=== PATIENT | female | born 1950 | race Caucasian/White ===

== ENCOUNTER 2016-10-27 14:22 | Emergency (ER) | payer BC, OTHER ==
[2016-10-27] MEDS ORDERED: KETOROLAC TROMETHAMINE INJ 30 MG/ML VIAL IM ONE (14:38)
[2016-10-27] MEDS ORDERED: CYCLOBENZAPRINE HCL 5 MG TAB PO ONE (14:38)
--- NOTE | 2016-10-27 14:41 | ED.PDOC ---
History of Present Illness - General Chief Complaint: Trauma Stated Complaint: fall Time Seen by Provider: 10/27/16 14:37 Source: patient, RN notes reviewed, Vital Signs reviewed Exam Limitations: no limitations - History of Present Illness Initial Comments: Patient was walking around a corner at work and slipped on a wet floor and fell. She twisted her right ankle. Does not think she hit her head and when the principal reviewed the video it did not appear that she hit her head. No LOC. + neck pain and headache. Mild L elbow pain, Low back pain and R posterior pelvis pain. Occurred: this afternoon Severity: moderate Pain Location: head, neck, pelvis, other - Right ankle Method of Injury: fall Improving Factors: immobilization Worsening Factors: movement Loss of Consciousness: no loss of consciousness Associated Symptoms (Fall): headache, neck pain Allergies/Adverse Reactions: Allergies Penicillins Allergy (Verified 10/27/16 14:35) Hydrocodone Adverse Reaction (Verified 10/27/16 14:35) Home Medications: Ambulatory Orders Cyclobenzaprine HCl 5 mg PO Q8HRS PRN #15 tab 10/27/16 Review of Systems - Review of Systems Constitutional: States: no symptoms reported EENTM: States: no symptoms reported Respiratory: States: no symptoms reported Cardiology: States: no symptoms reported Gastrointestinal/Abdominal: States: no symptoms reported Musculoskeletal: States: see HPI, back pain, joint pain, joint swelling, muscle pain, neck pain Skin: States: no symptoms reported Neurological: States: headache. Denies: numbness, paresthesia, pre-existing deficit, seizure, tingling, tremors, weakness Endocrine: States: no symptoms reported Hematologic/Lymphatic: States: no symptoms reported Past Medical History (General) - Patient Medical History Surgical History: appendectomy - Vaccination History Hx Influenza Vaccination: No - Social History Hx Tobacco Use: No Family Medical History - Family History Mother Family History: Unknown Living Status: Unknown Physical Exam - Physical Exam General Appearance: Alert, Obvious distress - due to pain, Well Developed, Well Groomed, Well Hydrated, Well Nourished Head Injury: no evidence of injury Eye Exam: bilateral normal ENT Exam: hearing grossly normal, no evidence of ENT injury, no dental injury Neck Exam: normal alignment, limited range of motion, muscle spasm, paraspinous muscle tender, spinous processes tender, tenderness, tender lateral, tender midline Cardiovascular/Respiratory: regular rate, rhythm, no M/R/G, normal peripheral pulses, no JVD, normal breath sounds, no respiratory distress Gastrointestinal/Abdominal: normal bowel sounds, non tender, soft, no organomegaly, no pulsatile mass Back Exam: no vertebral tenderness, muscle spasm - R lumbar Extremity Exam: pelvis stable, bony-point tenderness - R ankle, pain with movement - R ankle, tenderness 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 Will d/c home and have her stay off work for a couple days. - EKG/XRAY/CT XRAY: C-spine, L-spine, pelvis and ankle Xray Comments: No fractures or acute changes Departure - Departure Clinical Impression: Strain of ankle and foot, Strain of neck muscle, Contusion of hip, right Time of Disposition: 15:58 Disposition: Discharge to Home or Self Care Condition: Good Departure Forms: ED Discharge - Pt. Copy, Patient Portal Self Enrollment, Work Release Form Instructions: Neck Sprain, Ankle Sprain, Contusion Diet: resume usual diet Activity: walking as tolerated Prescriptions: Cyclobenzaprine HCl 5 mg PO Q8HRS PRN #15 tab PRN Reason: Muscle Spasms Home Medications: Ambulatory Orders Cyclobenzaprine HCl 5 mg PO Q8HRS PRN #15 tab 10/27/16
[2016-10-27] MEDS ORDERED: CYCLOBENZAPRINE HCL 10 MG TAB ONE (14:42)
[2016-10-27 14:45] VITALS: BP 156/79; TEMP 97.2; O2SAT 97
--- NOTE | 2016-10-27 15:31 | RAD ---
EXAM DESCRIPTION: XR CERVICAL SPINE 2 - 3 VIEWS CLINICAL HISTORY: pain s/p fall COMPARISON: None Available. TECHNIQUE: AP/lateral/ open-mouth odontoid FINDINGS: Minimal anterior subluxation of C3 on C4 is observed. The disc spaces are relatively well maintained. There is mild loss of disc height at the C5-6 level. No soft tissue swelling is seen. No malrotation is detected. The atlantoaxial junction and dens are normal. IMPRESSION: Mild degenerative changes are observed. No fracturing is detected. Electronically signed by: Rik Keller MD 10/27/2016 15:30
--- NOTE | 2016-10-27 15:31 | RAD ---
EXAM DESCRIPTION: XR ANKLE 3 OR MORE VIEWS CLINICAL HISTORY: pain s/p fall COMPARISON: None. TECHNIQUE: Three views. FINDINGS: Mild soft tissue swelling is observed. The ankle mortise is intact. No fracturing is detected. A small Achilles enthesophyte is observed. IMPRESSION: No fracturing is detected. Electronically signed by: Rik Keller MD 10/27/2016 15:28
--- NOTE | 2016-10-27 15:32 | RAD ---
EXAM DESCRIPTION: XR LUMBAR SPINE 2-3 VIEWS CLINICAL HISTORY: pain s/p fall COMPARISON: None Available. TECHNIQUE: AP/lateral/coned-down lateral FINDINGS: Loss of disc height and vacuum disc phenomena is observed at the L2-3 level. Anterior osteophyte formation is observed at this level. I see no evidence of spondylolysis or spondylolisthesis. IMPRESSION: Degenerative changes are observed most pronounced at the L2-3 level. No fracturing is detected. Electronically signed by: Rik Keller MD 10/27/2016 15:31
--- NOTE | 2016-10-27 15:34 | RAD ---
EXAM DESCRIPTION: XR PELVIS 1-2 VIEWS CLINICAL HISTORY: pain s/p fall COMPARISON: None Available. TECHNIQUE: AP pelvis FINDINGS: Phleboliths are observed in the pelvis. No fracturing is detected. No bone abnormality of significance is detected. No soft tissue abnormality is seen. IMPRESSION: No fracturing is detected. Electronically signed by: Rik Keller MD 10/27/2016 15:32
== END 2016-10-27 16:10 | disposition home or self-care (01) ==
LOC: ER 14:22
DX: S93.409A Sprain of unspecified ligament of unspecified ankle, initial encounter (principal); S16.1XXA Strain of muscle, fascia and tendon at neck level, initial encounter; S70.01XA Contusion of right hip, initial encounter; W01.0XXA Fall on same level from slipping, tripping and stumbling without subsequent striking against object, initial encounter; Y99.0 Civilian activity done for income or pay
CPT/HCPCS: 72040; 72100; 72170; 73610; J1885

== ENCOUNTER → 2017-01-12 | Outpatient (CLI) | payer MEDICARE, OTHER ==
--- NOTE | 2017-01-13 10:30 | RAD ---
EXAM DESCRIPTION: Ankle,Right 3 Views CLINICAL HISTORY: 66 years,Female,ANKLE PAIN COMPARISON: October 27, 2016 FINDINGS: The right ankle demonstrates no fracture, dislocation, or other acute bony abnormalities. Ankle mortise and talar dome unremarkable. Soft tissues are unremarkable. There is however a small region of sclerosis which was not seen in the prior study at the posterior superior aspect of the calcaneus IMPRESSION: Small mild area of new sclerosis seen in the posterior superior aspect of the calcaneus. This could be due to a stress fracture although this is an unusual location. And can be confirmed with bone scan or MRI if needed. [] Electronically signed by: Rik Taylor MD 01/13/2017 10:29 AM CDT
== END ==
LOC: RAD 16:42
PROVIDERS: ATTEND Nurse Practitioner Family
DX: M25.571 Pain in right ankle and joints of right foot (principal)

== ENCOUNTER → 2017-01-18 | Outpatient (CLI) | payer OTHER, MEDICARE ==
--- NOTE | 2017-01-18 11:39 | MRI ---
EXAM DESCRIPTION: MRI right ankle CLINICAL HISTORY: Ankle pain. Fracture of the calcaneus COMPARISON: None. TECHNIQUE: Multiplanar, multisequence MR images of the right ankle FINDINGS: Marked thickening of the middle bundle plantar fascia. Mild perifacial edema and minimal edema in a small well-corticated plantar calcaneal spur. No plantar fascial tear Normal Achilles tendon. No marrow abnormality of the calcaneus. No osteochondral lesion subtalar or calcaneocuboid Tibiofibular syndesmosis and ligaments are intact. Thickened anterior talofibular ligament with intraligamentous signal consistent with sprain/partial interstitial tear. No ligament laxity. Calcaneofibular and posterior talofibular ligaments are normal. Normal deltoid ligament. A marker placed anterior medial. No diagnostic acute abnormality of the deltoid ligament. Mild posterior tibial tenosynovitis with small tendon sheath effusion and mild insertional tendinosis. Calcaneonavicular ligament intact. Flexor digitorum and flexor hallux tendons are normal Flattened peroneus brevis retromalleolar with short segment interstitial partial tear. Peroneus longus tendon is normal. Normal dorsiflexion tendons No osteochondral lesion of the ankle or hindfoot Midfoot interosseous ligaments are intact IMPRESSION: Acute on chronic middle bundle plantar fascial fasciitis with minimal edema in the small calcaneal spur Posterior tibial tenosynovitis Short segment peroneus brevis split tear Electronically signed by: Matty Gomez MD 01/18/2017 11:38 AM CDT
== END | disposition home or self-care (01) ==
LOC: MRI 07:14
PROVIDERS: ATTEND Nurse Practitioner Family
DX: S92.001A Unspecified fracture of right calcaneus, initial encounter for closed fracture (principal)

== ENCOUNTER → 2017-03-24 | Outpatient (CLI) | payer MEDICARE, OTHER ==
--- NOTE | 2017-03-24 14:20 | MAM ---
History: Well woman exam. Date of exam: 03/24/2017 Services provided: Bilateral full field digital screening mammography. CAD, the images were reviewed with R2 computer aided detection. FINDINGS: Glandular tissue is scattered glandular contour. No prior study for comparison. 7 mm nodule right breast 11-12 o'clock does not have associated calcification or architectural distortion. No mammographic abnormality is noted on the left. IMPRESSION: Incomplete exam Recommendation: Directed right breast sonography, 7 mm nodule approximately 2 to 3 cm from the nipple 11-12 o'clock right breast. BIRAD CATEGORY: 0 INCOMPLETE Electronically signed by: Kya Martinez MD 03/24/2017 2:20 PM CDT Workstation: [id number]
== END | disposition home or self-care (01) ==
LOC: MAMMO 09:36
PROVIDERS: ATTEND Nurse Practitioner Family
DX: Z12.31 Encounter for screening mammogram for malignant neoplasm of breast (principal)

== ENCOUNTER → 2017-04-23 | Outpatient (CLI) | payer MEDICARE, OTHER | LOC: LAB 06:59 | PROVIDERS: ATTEND Nurse Practitioner Family | DX: E11.9 Type 2 diabetes mellitus without complications (principal); R21 Rash and other nonspecific skin eruption ==

== ENCOUNTER → 2017-05-04 | Outpatient (CLI) | payer MEDICARE, OTHER ==
--- NOTE | 2017-05-04 16:51 | US ---
EXAM DESCRIPTION: Breast,Right CLINICAL HISTORY: 66 years Female, March 24 screening mammogram showed possible abnormality central retroareolar portion right breast COMPARISON: March 24, 2017 FINDINGS: Directed ultrasound right breast in the area of mammographic concern shows a benign lymph node with fatty hilum measuring 7.2 x 4.2 mm in size. There is no worrisome finding observed. IMPRESSION: BIRAD CATEGORY: 2 BENIGN Electronically signed by: Lucius Dior MD 05/04/2017 4:49 PM CDT Workstation: [id number]
== END ==
LOC: MAMMO 16:30
PROVIDERS: ATTEND Nurse Practitioner Family
DX: N63 Unspecified lump in breast (principal)

== ENCOUNTER → 2018-05-09 | Outpatient (CLI) | payer MEDICARE, OTHER ==
--- NOTE | 2018-05-10 08:45 | MAM ---
EXAM DESCRIPTION: 3D Screening BILATERAL : Digital Mammography. CLINICAL HISTORY: 67 years Female SCREENING . No complaints. No family history breast cancer. Childbirth. Additional history unknown. COMPARISON: Digital screening bilateral study 03/24/2017. Right breast diagnostic ultrasound 05/04/2017. Reports from prior examinations also reviewed. TECHNIQUE: Bilateral CC and MLO projection full-field images, 3-D tomosynthesis digital mammographic technique. CAD not utilized. FINDINGS: The breast parenchymal density pattern is: Scattered areas of fibroglandular density. No skin thickening or nipple retraction. Bilateral axillary lymph nodes. Large coarse calcification in the anterior right breast. Bilateral smaller solitary microcalcifications. Stable intramammary lymph node anterior right breast. No new focal, stellate mass or density, focal asymmetry , and no suspicious microcalcifications bilaterally. Stable mammograms compared to prior study, taking into account differences in mammographic technique. IMPRESSION: BI-RADS CATEGORY: 2 - BENIGN FINDINGS. FOLLOW UP: Routine digital bilateral screening, one year interval from April 2018. Written communication explaining the IMPRESSION and follow-up, will be mailed to the patient and referring health care provider. According to the [employer], yearly mammograms are recommended starting at age 40 and continuing as long as a woman is in good health. Any breast change noted on a breast self-exam should be reported promptly to the patient's healthcare provider. Breast MRI is recommended for women with an approximately 20-25% or greater lifetime risk of breast cancer, including women with a strong family history of breast or ovarian cancer and women who have been treated for Hodgkin's disease. A negative mammographic report should not delay tissue diagnosis in patients with significant clinical history or physical findings. Extremely dense breast tissue limits the sensitivity of digital mammography. Electronically signed by: Kurtis Sevilla MD 05/10/2018 8:43 AM CDT
== END ==
LOC: MAMMO 08:30
PROVIDERS: ATTEND Nurse Practitioner Family
DX: Z12.31 Encounter for screening mammogram for malignant neoplasm of breast (principal)

== ENCOUNTER → 2018-05-17 | Outpatient (CLI) | payer MEDICARE, OTHER | LOC: GMAJS 11:50 | PROVIDERS: ATTEND Physician Assistant | DX: M79.609 Pain in unspecified limb (principal) ==

== ENCOUNTER → 2018-09-19 | Outpatient (CLI) | payer MEDICARE, OTHER ==
--- NOTE | 2018-09-19 09:04 | MRI ---
EXAM DESCRIPTION: MRI right wrist CLINICAL HISTORY: M25.331. Anterior wrist pain COMPARISON: None. TECHNIQUE: Multiplanar, multisequence MR images of the right wrist FINDINGS: Small extensor carpi ulnaris talus tendon sheath effusion without intrinsic signal abnormality. The other extensor tendons of the wrist are normal. Normal flexor tendons. Carpal tunnel and Guyon's canal are normal Intact triangular fibrocartilage complex. Grade 4 chondrosis along the ulnar side of the lunate over about 6 mm with subchondral cystic change and minimal edema. Grade 4 chondrosis over the distal radial aspect of the lunate articular surface with small focus of subchondral edema over about 4 mm. No other full-thickness chondrosis or chronic osteochondral lesion. Marrow signal otherwise normal Intrinsic ligaments of the wrist are intact IMPRESSION: Small extensor carpi radialis brevis tendon sheath effusion Regions of grade 4 chondrosis proximal ulnar side of the lunate and distal radial side of the lunate Electronically signed by: Matty Gomez MD 09/19/2018 9:03 AM [facility]
== END ==
LOC: MRI 07:00
PROVIDERS: ATTEND Orthopaedic Surgery
DX: M25.331 Other instability, right wrist (principal); M94.231 Chondromalacia, right wrist

== ENCOUNTER 2018-12-28 19:58 | Emergency (ER) | payer MEDICARE, OTHER ==
[2018-12-28] MEDS: ALPRAZolam 0.25 MG TAB PO ONE (20:29)
[2018-12-28] MEDS: POTASSIUM CHLORIDE ELIXIR 20 MEQ/15 ML UD PO ONE (21:07)
--- NOTE | 2018-12-28 21:15 | ED.PDOC ---
History of Present Illness - General Chief Complaint: Behavioral / Psych Stated Complaint: thinks its bells palsy, numb to left arm, anxiety Time Seen by Provider: 12/28/18 20:18 Source: patient Exam Limitations: no limitations - History of Present Illness Initial Comments: the patient is a 68-year-old female presenting to emergency room secondary to 20 minutes of tingling to her left arm. It started after she ate some popcorn and then went walking around [facility]. She experienced a similar episode last week that lasted several hours. It did not come on with any exertion. No nausea or vomiting. No palpitations or chest pain. No syncope or near syncope. Significantly she had an exercise tolerance test that was normal within the last year according to her. No history of any coronary artery disease. No history of any diabetes. The patient has very painful tenderness to palpation over the distal quarter of the pectoralis muscle on the left. She has no loss of sensation. Pulses are symmetrical. Coloration is normal. Telemetry monitoring shows normal sinus rhythm as does the EKG. tingling to the left arm had all but resolved by the time of my evaluation. Timing/Duration: 1/2 hour Severity: mild Improving Factors: nothing Worsening Factors: nothing Associated Symptoms: denies symptoms Allergies/Adverse Reactions: Allergies Penicillins Allergy (Verified 12/28/18 20:22) Hydrocodone Adverse Reaction (Verified 10/27/16 14:35) Home Medications: Ambulatory Orders NK 12/28/18 Review of Systems - Review of Systems Constitutional: States: no symptoms reported EENTM: States: no symptoms reported Respiratory: States: no symptoms reported Cardiology: States: no symptoms reported Gastrointestinal/Abdominal: States: no symptoms reported Genitourinary: States: no symptoms reported Musculoskeletal: States: no symptoms reported Skin: States: no symptoms reported Neurological: States: see HPI Endocrine: States: no symptoms reported All other Systems: No Change from Baseline Past Medical History (General) - Patient Medical History Hx Seizures: No Hx Stroke: No Hx Dementia: No Hx Asthma: No Hx of COPD: No Hx Cardiac Disorders: No Hx Congestive Heart Failure: No Hx Pacemaker: No Hx Hypertension: No Hx Thyroid Disease: No Hx Diabetes: No Hx Gastroesophageal Reflux: No Hx Renal Disease: No Hx Cancer: No Hx of HIV: No Hx Hepatitis C: No Hx MRSA: No Surgical History: appendectomy - Vaccination History Hx Tetanus, Diphtheria Vaccination: No Hx Influenza Vaccination: No Hx Pneumococcal Vaccination: No - Social History Hx Tobacco Use: No Hx Alcohol Use: No Family Medical History - Family History Mother Family History: Unknown Living Status: Unknown Father Hx Cardiac Disease: Yes - strokes Physical Exam - Physical Exam General Appearance: Alert, Anxious, No apparent distress Eye Exam: bilateral normal Ears, Nose, Throat: hearing grossly normal, normal ENT inspection, normal pharynx Neck: full range of motion, supple Respiratory: lungs clear, normal breath sounds, no respiratory distress, no accessory muscle use, other - pectoralis muscle very tender as above Cardiovascular/Chest: normal peripheral pulses, regular rate, rhythm, no edema Peripheral Pulses: radial,right: 2+, radial,left: 2+, dorsalis pedis,right: 2+, dorsalis pedis,left: 2+ Gastrointestinal/Abdominal: non tender, soft Rectal Exam: deferred Back Exam: no CVA tenderness, no vertebral tenderness Extremity: non-tender, normal inspection, no pedal edema, normal capillary refill 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 She has been instructed on how to stretch the muscle out. Topical heat may also prove beneficial. ER warnings were given. Follow-up with primary care doctor within the next week. - Results/Orders Results/Orders: Laboratory Tests 12/28/18 12/28/18 20:25 20:25 WBC 6.5 RBC 4.25 Hgb 13.1 Hct 38.9 MCV 91.7 MCH 30.9 MCHC 33.7 RDW 12.9 Plt Count 189 MPV 9.3 Absolute Neuts (auto) 4.70 Absolute Lymphs (auto) 1.20 Absolute Monos (auto) 0.40 Absolute Eos (auto) 0.20 Absolute Basos (auto) 0.00 Neutrophils % 71.3 Lymphocytes % 18.3 L Monocytes % 6.2 Eosinophils % 3.6 Basophils % 0.6 Sodium 137 Potassium 3.4 L Chloride 104 Carbon Dioxide 21 Anion Gap 15.4 BUN 13 Creatinine 0.51 L BUN/Creatinine Ratio 25.5 H Random Glucose 181 H Serum Osmolality 278.5 Calcium 8.5 Magnesium 2.2 Total Bilirubin 0.4 AST 29 ALT 27 Alkaline Phosphatase 85 Creatine Kinase 87 CK-MB (CK-2) 1.9 CK-MB (CK-2) % Not Reportable Troponin I < 0.02 B-Natriuretic Peptide 36.3 Serum Total Protein 6.7 Albumin 4.2 Globulin 2.5 Albumin/Globulin Ratio 1.7 on the chest x-ray seen no evidence of any infiltrate, pneumothorax or significant mass. No evidence of fluid overload. Official read is pending due to technical difficulties. EKG shows normal sinus rhythm. Mild inverted T-wave in lead 3. Borderline R- wave progression. Normal axis. Departure - Departure Clinical Impression: Impingement syndrome, shoulder, left Pectoralis muscle strain Qualifiers: Encounter type: initial encounter Qualified Code(s): S29.011A - Strain of muscle and tendon of front wall of thorax, initial encounter Disposition: Discharge to Home or Self Care Condition: Fair Departure Forms: ED Discharge - Pt. Copy, Patient Portal Self Enrollment Instructions: Muscle Spasms (DC) Activity: increase activity as tolerated Referrals: [facility] [Primary Care Provider] - 1-2 Weeks Home Medications: Ambulatory Orders NK 12/28/18 Additional Instructions: the patient's 68-year-old female presenting to emergency room with tingling left upper extremity that i believe is due to the very mild impingement syndrome related to irritation of the distal pectoralis muscle on the left. She has been instructed on how to stretch the muscle out. Topical heat may also prove beneficial. ER warnings were given. Follow-up with primary care doctor within the next week.
--- NOTE | 2018-12-28 21:25 | RAD ---
EXAM DESCRIPTION: Chest,2 Views CLINICAL HISTORY: left arm tingling COMPARISON: None. FINDINGS: Two views of the chest are submitted. Cardiac silhouette appears normal. No focal parenchymal or pleural disease. No acute bony abnormality. There is partial absence of the distal right clavicle. There is no significant pulmonary vascular engorgement. IMPRESSION: No evidence of acute cardiopulmonary disease. Electronically signed by: Kurtis Doran 12/28/2018 9:22 PM CDT
[2018-12-28 21:41] VITALS: O2SAT 98
[2018-12-28 21:42] VITALS: BP 128/78; TEMP 97.9
== END 2018-12-28 21:42 | disposition home or self-care (01) ==
LOC: ER 19:58
DX: M75.42 Impingement syndrome of left shoulder (principal); E87.6 Hypokalemia; S29.011A Strain of muscle and tendon of front wall of thorax, initial encounter; Z88.0 Allergy status to penicillin; Z88.5 Allergy status to narcotic agent; X58.XXXA Exposure to other specified factors, initial encounter; Y92.9 Unspecified place or not applicable

== ENCOUNTER → 2019-01-10 | Outpatient (CLI) | payer MEDICARE, OTHER | LOC: GMAH 17:45 | PROVIDERS: ATTEND Family Medicine | DX: E55.9 Vitamin D deficiency, unspecified (principal); E87.6 Hypokalemia; R53.83 Other fatigue ==

== ENCOUNTER → 2019-04-15 | Outpatient (CLI) | payer MEDICARE, OTHER ==
--- NOTE | 2019-04-15 09:41 | RAD ---
EXAM: XR Right Ankle Complete, 3 or More Views CLINICAL HISTORY: 68 years old and is Female; PAIN TECHNIQUE: Frontal, lateral and oblique views of the right ankle. COMPARISON: No relevant prior studies available. FINDINGS: Limitations: None. Bones/joints: There is a small acute avulsion ossicle from the tip of the fibula without significant distraction. Possible punctate ossicle from the tip of the medial malleolus. Ankle mortise symmetric. No dislocation. Soft tissues: Soft tissue swelling noted most prominent laterally. IMPRESSION: 1. There is a small acute avulsion fracture fragment from the tip of the lateral malleolus. Cannot exclude punctate age-indeterminate fracture ossicle from the tip of the medial malleolus. 2. Soft tissue swelling noted. Electronically signed by: Jing Jenkins MD 04/15/2019 9:39 AM CDT
--- NOTE | 2019-04-15 09:42 | RAD ---
EXAM: XR Left Ankle Complete, 3 or More Views CLINICAL HISTORY: 68 years old and is Female; PAIN TECHNIQUE: Frontal, lateral and oblique views of the left ankle. COMPARISON: No relevant prior studies available. FINDINGS: Limitations: None. Bones/joints: Unremarkable. No acute fracture. No dislocation. Soft tissues: Unremarkable. IMPRESSION: No acute findings. Electronically signed by: Jing Jenkins MD 04/15/2019 9:40 AM CDT
--- NOTE | 2019-04-15 09:43 | RAD ---
EXAM: XR Left Tibia and Fibula, 2 Views CLINICAL HISTORY: 68 years old and is Female; PAIN TECHNIQUE: Frontal and lateral views of the left tibia and fibula. COMPARISON: No relevant prior studies available. FINDINGS: Limitations: None. Bones/joints: Unremarkable. No acute fracture. No dislocation. Soft tissues: Unremarkable. No radiopaque foreign body. IMPRESSION: No acute findings. Electronically signed by: Jing Jenkins MD 04/15/2019 9:41 AM CDT
== END ==
LOC: RAD 09:02
PROVIDERS: ATTEND Nurse Practitioner Family
DX: S82.61XA Displaced fracture of lateral malleolus of right fibula, initial encounter for closed fracture (principal); M25.572 Pain in left ankle and joints of left foot; M79.605 Pain in left leg

== ENCOUNTER → 2019-04-28 | Outpatient (CLI) | payer MEDICARE, OTHER ==
--- NOTE | 2019-04-28 09:10 | RAD ---
EXAM DESCRIPTION: Ankle,Right 3 Views CLINICAL HISTORY: M25.571 FINDINGS: 3 views of the right ankle. Acute avulsion type fracture of the distal fibular tip is present. No corresponding medial malleolus fracture. Ankle mortise remains symmetric. The soft tissues are unremarkable. No erosions are present. IMPRESSION: Acute distal fibular tip fracture. Electronically signed by: Morales Eaton MD 04/28/2019 9:08 AM CDT
== END ==
LOC: RAD 08:09
PROVIDERS: ATTEND Orthopaedic Surgery
DX: S82.831A Other fracture of upper and lower end of right fibula, initial encounter for closed fracture (principal)

== ENCOUNTER → 2019-05-19 | Outpatient (CLI) | payer MEDICARE, OTHER ==
--- NOTE | 2019-05-19 09:21 | RAD ---
EXAM DESCRIPTION: Ankle,Right 3 Views CLINICAL HISTORY: 68 years Female, M25.571 COMPARISON: April 28, 2019 FINDINGS: Three views of the right ankle again show a small nondisplaced fracture involving the tip of the lateral malleolus, nonunited but stable.. There is an additional bone fragment along the dorsal aspect of the talar neck which is unchanged from the prior exam and suggest a small nonunited avulsion or chip type fracture. No new fracture or malalignment. Small calcaneal enthesophytes at the plantar fascia and Achilles tendon insertions. The tibiotalar joint space and talar dome are well-maintained. IMPRESSION: Tiny nonunited fracture involving the tip of the lateral malleolus with a second tiny fracture fragment adjacent to the talar neck, all unchanged from April 28, 2019. No new abnormality. Electronically signed by: Alfredo Berg MD 05/19/2019 9:19 AM CDT
== END ==
LOC: RAD 07:19
PROVIDERS: ATTEND Orthopaedic Surgery
DX: S82.831D Other fracture of upper and lower end of right fibula, subsequent encounter for closed fracture with routine healing (principal)

== ENCOUNTER 2020-01-05 11:41 | Emergency (ER) | payer MEDICARE, OTHER ==
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
[2020-01-05] MEDS ORDERED: ACETAMINOPHEN 500 MG TAB PO ONE (12:16)
--- NOTE | 2020-01-05 12:50 | RAD ---
EXAM DESCRIPTION: Lumbar Spine 3 Views CLINICAL HISTORY: 69 years Female, pain COMPARISON: None available. FINDINGS: The vertebral body heights are well-maintained with no acute compression deformity. Multilevel degenerative disc disease and facet arthropathy is noted throughout the lumbar spine. Grade 1 anterolisthesis of L4 over L5. The visualized prevertebral and paravertebral soft tissues appear grossly unremarkable. IMPRESSION: Multilevel degenerative disc disease and facet arthropathy is noted throughout the lumbar spine. Grade 1 anterolisthesis of L4 over L5. Electronically signed by: Valorie You MD 01/05/2020 12:49 PM CDT
[2020-01-05 13:04] VITALS: O2SAT 96
[2020-01-05 13:31] VITALS: BP 141/70; TEMP 98.1
== END 2020-01-05 13:25 | disposition home or self-care (01) ==
LOC: ER 11:41
DX: S30.0XXA Contusion of lower back and pelvis, initial encounter (principal); Z88.5 Allergy status to narcotic agent; Z88.0 Allergy status to penicillin; V43.92XA Unspecified car occupant injured in collision with other type car in traffic accident, initial encounter; Y92.410 Unspecified street and highway as the place of occurrence of the external cause

== ENCOUNTER → 2020-07-22 | Outpatient (CLI) | payer MEDICARE, OTHER | LOC: GMA MATASK 10:58 | PROVIDERS: ATTEND Family Medicine | DX: E78.2 Mixed hyperlipidemia (principal) ==

== ENCOUNTER → 2020-11-21 | Outpatient (CLI) | payer MEDICARE, OTHER | LOC: GMA MATASK 17:26 | PROVIDERS: ATTEND Family Medicine | DX: E03.9 Hypothyroidism, unspecified (principal) ==